=== PATIENT | male | born 1980 | race Two or more races ===

== ENCOUNTER 2018-03-13 09:20 | Emergency (ER) | payer OTHER ==
[2018-03-13 09:26] VITALS: Ht 188 cm
[2018-03-13 10:49] LABS: CALCIUM 9.2 mg/dL (8.5-10.1); CHLORIDE SERUM 104 mmol/L (98-107); CREATININE SERUM 0.7 mg/dL (0.7-1.3); GFR1 > 60 mL/min; GLUCOSE SERUM 96 mg/dL (74-106); POTASSIUM SERUM 4.7 mmol/L (3.5-5.1); SODIUM SERUM 139 mmol/L (136-145)
[2018-03-13 10:53] LABS: ALKALINE PHOSPHATASE 67 U/L (46-116); ALT/SGPT 35 U/L (16-63); AST/SGOT 15 U/L (15-37); BILIRUBIN TOTAL 0.4 mg/dL (0.20-1.00); TOTAL PROTEIN, SERUM 7.6 g/dL (6.4-8.2)
[2018-03-13 11:02] LABS: BASOPHIL % 0.5 % (0-2); PLATELET COUNT 281 x10^3mcL (130-400); RED CELL DISTRIBUTION WIDTH 12.9 % (11.5-14.5)
[2018-03-13 12:39] VITALS: BP 122/72
== END 2018-03-13 12:39 | disposition home or self-care (01) ==
LOC: ED 09:20
PROVIDERS: Specialist
DX: S22.070A Wedge compression fracture of T9-T10 vertebra, initial encounter for closed fracture (principal); W18.39XA Other fall on same level, initial encounter; Y93.89 Activity, other specified; Y92.69 Other specified industrial and construction area as the place of occurrence of the external cause; Y99.8 Other external cause status
CPT/HCPCS: 72072; J1885; J2930; J3010; Q0162

== ENCOUNTER 2018-05-24 13:56 | Emergency (ER) | payer OTHER ==
[~2018-05-24] VITALS: Ht 188 cm; Wt 107.0 kg
[2018-05-24 13:59] VITALS: Ht 188 cm; Wt 107.0 kg
[2018-05-24 15:30] VITALS: BP 99/47
== END 2018-05-24 15:30 | disposition home or self-care (01) ==
LOC: ED 13:56
DX: S93.401A Sprain of unspecified ligament of right ankle, initial encounter (principal); X58.XXXA Exposure to other specified factors, initial encounter; Y93.01 Activity, walking, marching and hiking; Y92.89 Other specified places as the place of occurrence of the external cause; Y99.8 Other external cause status

== ENCOUNTER → 2020-06-11 | Outpatient (CLI) | payer OTHER | END | disposition home or self-care (01) | LOC: MI 10:35 | PROVIDERS: ATTEND Orthopaedic Surgery | PROC: BP39ZZZ Magnetic Resonance Imaging (MRI) of Left Shoulder (ICD-10-PCS; principal; 2020-06-11) | DX: M25.512 Pain in left shoulder (principal) ==